=== PATIENT | male | born 1985 ===

== ENCOUNTER → 2019-10-20 14:28 | Outpatient (CLI) | payer OTHER, SELFPAY ==
[2019-10-21 05:13] LABS: Rubeola Measles IgG > 300.0 AU/mL (Immune >16.4); Varicella IgG Antibody >4000 index (Immune >165)
[2019-10-21 07:36] LABS: Hepatitis B Surf Ab Qualitativ Non Reactive (.)
[2019-10-22 14:08] LABS: QuantiFERON Mitogen Value 5.83 IU/mL (.); QuantiFERON TB Gold Plus Positive (Negative); QuantiFERON TB2 Ag Value 0.53 IU/mL (.)
== END ==
PROVIDERS: Referring Provider Registered Nurse Diabetes Educator; Visit Provider Registered Nurse Diabetes Educator
DX: Z01.89 Encounter for other specified special examinations (principal)
CPT/HCPCS: 36415; 86480; 86706; 86735; 86762; 86765; 86787

== ENCOUNTER 2019-10-29 20:42 | Emergency (ER) | payer OTHER, SELFPAY ==
[2019-10-29 20:48] VITALS: BP 135/84; PULSE 78; RESP 15; TEMP 36.3; O2SAT 100; BMI 23.5
--- NOTE | 2019-10-29 20:57 | DI.RAD.S_ITS ---
PROCEDURE: XR CHEST 2V INDICATIONS: + PPD (long history of same), CXR required for nursing schoo TECHNIQUE: 2 views of the chest were acquired. COMPARISON: None. FINDINGS: Surgical changes and devices: None. Lungs and pleura: Lungs are clear. No pleural effusions or pneumothorax. Mediastinum: Mediastinal contours are normal. Heart size is normal. Bones and chest wall: No suspicious bony abnormalities. Soft tissues appear unremarkable. IMPRESSION: 1. No radiographic evidence of granulomatous disease. Dictated by: Rosa Dale M.D. on 10/29/2019 at 22:21 Approved by: Rosa Dale M.D. on 10/29/2019 at 22:22
--- NOTE | 2019-10-29 22:26 | ED.RECABL ---
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 QuantiFERON lab test is unremarkable and he is completely asymptomatic. Related Data Home Medications Medication Instructions Recorded Confirmed No Known Home Medications 10/20/19 10/20/19 Allergies Allergy/AdvReac Type Severity Reaction Status Date / Time No Known Drug Allergies Allergy Verified 10/29/19 20:48 Review of Systems Review of Systems Narrative: No fever, cough, cold, chills, wheezing Patient History Medical History Positive QuantiFERON-TB Gold test (Acute) Social History Smoking Status: Current some day smoker Smoking Status: Current some day smoker alcohol intake frequency: holidays/special occasions only Substance Use Type: does not use Exam Narrative Exam Narrative: General: Alert appropriate in no acute distress Respiratory: Able to speak in full sentences, no obvious respiratory distress Skin: No obvious rashes, warm and dry Neurologic: Grossly intact no obvious asymmetries or abnormalities Psych, appropriate insight and affect, cooperative Initial Vital Signs Initial Vital Signs: Vital Signs Temperature 97.4 F L 10/29/19 20:48 Pulse Rate 78 10/29/19 20:48 Respiratory Rate 15 10/29/19 20:48 Blood Pressure 135/84 10/29/19 20:48 Pulse Oximetry 100 10/29/19 20:48 Course Orders Ordered: ED Orders 10/29/19 20:57 XR chest 2V Stat Vital Signs Vital signs: Vital Signs - 8 hr 10/29/19 20:48 Temperature 97.4 F L Pulse Rate 78 Respiratory Rate 15 Blood Pressure 135/84 Pulse Oximetry 100 MDM - Recheck/Abnormal Lab/Rx Medical Records Attestation: I reviewed the patient's medical records. Imaging Data Chest x-ray: Radiologist's Impression: IMPRESSION: 1. No radiographic evidence of granulomatous disease. Dictated by: Rosa Dale M.D. 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 Doing the QuantiFERON testing is going to be much more specific inappropriate. Your chest x-ray was completely normal today. Good luck in nursing school! Prescriptions: No Action No Known Home Medications RF: 0 Referrals: Matthew Orosco ARNP [Primary Care Provider] -
== END 2019-10-29 23:00 | disposition home or self-care (01) ==
PROVIDERS: Emergency Provider Emergency Medicine; PCP Registered Nurse Diabetes Educator
DX: R76.11 Nonspecific reaction to tuberculin skin test without active tuberculosis (principal)
CPT/HCPCS: 71046; 99283

== ENCOUNTER → 2019-10-30 16:33 | Outpatient (CLI) | payer OTHER, SELFPAY ==
[2019-10-30 18:25] LABS: Alanine Aminotransferase 20 IU/L (<50); Albumin 4.8 g/dL (3.5-5.0); Albumin Globulin Ratio 1.7 (1.0-2.8); Alkaline Phosphatase 63 U/L (38-126); Aspartate Aminotransferase 29 IU/L (17-59); BUN Creatinine Ratio 21.1 (6-22); Bilirubin Total 0.8 mg/dL (0.2-1.3); Blood Urea Nitrogen 16 mg/dL (9-20); Calcium 9.8 mg/dL (8.4-10.2); Carbon Dioxide 28 mmol/L (22-32); Chloride 102 mmol/L (98-107); Estimated Glomerular Filt Rate > 60.0 mL/min (>60); Globulin 2.9 g/dL (1.7-4.1); Glucose 88 mg/dL (70-100); HEMOLYSIS < 15 (0-50); Potassium 3.9 mmol/L (3.4-5.1); Sodium 137 mmol/L (137-145); Total Protein 7.7 g/dL (6.3-8.2)
== END ==
PROVIDERS: PCP Registered Nurse Diabetes Educator; Referring Provider Registered Nurse; Visit Provider Registered Nurse
DX: R76.12 Nonspecific reaction to cell mediated immunity measurement of gamma interferon antigen response without active tuberculosis (principal)
CPT/HCPCS: 36415; 80053